=== PATIENT | male | born 1975 | race Hispanic/Latino ===

== ENCOUNTER 2018-04-03 09:50 | Inpatient (IN) | payer OTHER ==
[~2018-04-03] VITALS: Ht 172.7 cm; Wt 100.0 kg
[2018-04-03 11:35] LABS: HEMATOCRIT 49.2 % (38.0-50.0); MCH 30.5 PG (29.0-34.0); MCHC 34.6 G/DL (30.0-36.0); MCV 88.2 FL (86-99); PLATELET COUNT 315 K/uL (156-360); RBC DIS.WIDTH-CV 13.6 % (11.8-14.6); RBC DIS.WIDTH-SD 43.7 % (39-53); RED BLOOD COUNT 5.58 M/uL (4.00-5.50); WHITE BLOOD COUNT 12.3 K/uL (4.1-10.2)
[2018-04-03 11:45] LABS: CHLORIDE 102 mEq/L (99-109); POTASSIUM 3.9 mEq/L (3.7-5.4); SODIUM 135 mEq/L (136-147)
[2018-04-03 11:47] LABS: GLUCOSE 117 mg/dL (70-99)
[2018-04-03 11:48] LABS: TOTAL PROTEIN 9.4 g/dL (6.4-8.3)
[2018-04-03 11:49] LABS: TOTAL BILIRUBIN 0.4 mg/dL (0.0-1.0)
[2018-04-03 11:51] LABS: ALKALINE PHOSPHATASE 207 IU/L (3-129)
[2018-04-03 11:52] LABS: CREATININE 0.8 mg/dL (0.6-1.3); GFR ESTIMATE (CALCULATED) > 59 mL/min/ (58.99-99999); UREA NITROGEN (BUN) 7 mg/dL (9-23)
[2018-04-03 11:53] LABS: AST (GOT) 22 IU/L (2-34)
[2018-04-03 11:55] LABS: ALT (GPT) 20 IU/L (3-49)
[2018-04-03 12:00] LABS: APPEARANCE SL.HAZY ((CLEAR)); BILIRUBIN NEGATIVE; BLOOD LARGE; COLOR AMBER ((YELLOW)); GLUCOSE (STRIP) NEGATIVE; KETONES NEGATIVE; LEUKOCYTES NEGATIVE; NITRITE NEGATIVE; PROTEIN (STRIP) >=500; SPECIFIC GRAVITY 1.025 (1.000-1.030); UROBILINOGEN 0.2 MG/DL (0.2-1.0)
[2018-04-03 12:06] LABS: BACTERIA NONE SEEN /HPF; EPITHELIAL CELLS RARE /HPF; MUCUS TRACE /LPF; UCUL ADDED? YES
[2018-04-03 12:38] LABS: ERTH.SED.RATE 100 MM/HR (0-15)
[2018-04-03 13:15] LABS: LYME DISEASE SEROLOGY SCREEN NEGATIVE (NEGATIVE)
[2018-04-03] MEDS ORDERED: PRAZOSIN HCL1 MG PO (13:53)
[2018-04-03] MEDS ORDERED: LANTUS 3 M100 UNITS1 SC (13:53)
[2018-04-03] MEDS ORDERED: PROAIR HFA8.5 GM IH (13:53)
[2018-04-03] MEDS ORDERED: LOSARTAN POTASS50 MG PO (13:53)
[2018-04-03] MEDS ORDERED: BUSPIRONE HCL10 MG PO (13:54)
[2018-04-03] MEDS ORDERED: DIVALPROEX SOD500 M1 PO (13:54)
[2018-04-03] MEDS ORDERED: QUETIAPINE FUM100 MG PO (13:54)
[2018-04-03] MEDS ORDERED: WELLBUTRIN XL300 MG PO (13:55)
[2018-04-03] MEDS ORDERED: GABAPENTIN800 MG PO (13:55)
[2018-04-03 16:29] LABS: SERUM ETHYL ALCOHOL 110 mg/dL
[2018-04-03 16:54] LABS: BENZODIAZEPINES, URINE SCREEN Negative (200 ng/mL)
[2018-04-03 17:14] VITALS: BP 177/97
[2018-04-03 17:49] LABS: TROP-I INTERPRETATION NEGATIVE; TROPONIN-I 0.01 ng/mL (0.0-0.30)
[2018-04-03 21:18] VITALS: BP 143/82
[2018-04-03 23:22] VITALS: BP 131/73
[2018-04-04 04:00] VITALS: BP 125/78
[2018-04-04 05:49] LABS: HEMATOCRIT 43.6 % (38.0-50.0); MCH 29.2 PG (29.0-34.0); MCHC 32.8 G/DL (30.0-36.0); MCV 89.2 FL (86-99); PLATELET COUNT 263 K/uL (156-360); RBC DIS.WIDTH-CV 13.5 % (11.8-14.6); RBC DIS.WIDTH-SD 44.5 % (39-53); RED BLOOD COUNT 4.89 M/uL (4.00-5.50); WHITE BLOOD COUNT 9.4 K/uL (4.1-10.2)
[2018-04-04 05:52] LABS: HEMOGLOBIN 14.3 G/DL (12.5-16.6)
[2018-04-04 06:14] LABS: ALKALINE PHOSPHATASE 145 IU/L (3-129); ALT (GPT) 12 IU/L (3-49); AST (GOT) 12 IU/L (2-34); CHLORIDE 107 MEQ/L (99-109); CREATININE 0.8 MG/DL (0.6-1.3); GFR ESTIMATE (CALCULATED) > 59 mL/min/ (58.99-99999); GLUCOSE 116 mg/dL (70-99); MAGNESIUM 2.1 mg/dl (1.3-2.7); POTASSIUM 4.4 MEQ/L (3.7-5.4); SODIUM 137 MEQ/L (136-147); TOTAL BILIRUBIN 0.6 MG/DL (0.0-1.0); TOTAL PROTEIN 7.1 G/DL (6.4-8.3); UREA NITROGEN (BUN) 10 mg/dL (9-23)
[2018-04-04 07:39] VITALS: BP 129/76
[2018-04-04 09:47] LABS: HEMOGLOBIN A1c (GLYCOHEMOGLOB) 5.2 % (Below 5.7)
[2018-04-04 11:47] VITALS: BP 130/77
[2018-04-04] MEDS ORDERED: TRAMADOL HCL50 MG PO (12:42)
[2018-04-04] MEDS ORDERED: VITAMIN B12-FO1 EACH PO (12:42)
[2018-04-04] MEDS ORDERED: LYRICA50 MG PO (12:42)
[2018-04-04 15:38] VITALS: BP 162/95
== END 2018-04-04 18:01 | disposition home health service (06) | DRG 74 ==
LOC: EME 09:50 → EDOF 13:42 → 3EAST 13:42 → ENRESERV 13:46 → 3EAST 16:56
PROVIDERS: Family Medicine; Physician Assistant
PROC: HZ2ZZZZ Detoxification Services for Substance Abuse Treatment (ICD-10-PCS; principal; 2018-04-03)
DX: G60.8 Other hereditary and idiopathic neuropathies (principal); F33.9 Major depressive disorder, recurrent, unspecified; G89.29 Other chronic pain; E11.9 Type 2 diabetes mellitus without complications; I10 Essential (primary) hypertension; E86.0 Dehydration; F17.210 Nicotine dependence, cigarettes, uncomplicated; F43.10 Post-traumatic stress disorder, unspecified; Y90.5 Blood alcohol level of 100-119 mg/100 ml; R26.2 Difficulty in walking, not elsewhere classified; F10.129 Alcohol abuse with intoxication, unspecified; M51.27 Other intervertebral disc displacement, lumbosacral region; M54.2 Cervicalgia; R10.11 Right upper quadrant pain; M54.9 Dorsalgia, unspecified; G64 Other disorders of peripheral nervous system; R29.818 Other symptoms and signs involving the nervous system; M19.90 Unspecified osteoarthritis, unspecified site; N40.0 Benign prostatic hyperplasia without lower urinary tract symptoms; F41.9 Anxiety disorder, unspecified; Z56.0 Unemployment, unspecified; Z79.4 Long term (current) use of insulin; Z79.51 Long term (current) use of inhaled steroids; Z80.42 Family history of malignant neoplasm of prostate
CPT/HCPCS: 70450; 70553; 72125; 72131; 72157; 72158; 76705; 80053; 80306 90; 81003; 82550; 82607; 82948; 83036; 83605; 83735; 84153; 84484; 85027; 85651; 86618; 87040; 87086; 99281; 99284; G0480; J1644; J2405; J3420; J7030; J7512